=== PATIENT | female | born 1965 | race Native Hawaiian/Other Pacific Islander ===

== ENCOUNTER 2018-11-02 14:07 | Emergency (ER) | payer OTHER, SELFPAY ==
[2018-11-02 14:20] VITALS: BP 144/78; PULSE 65; RESP 12; TEMP 36.9; O2SAT 95; BMI 32.3
[2018-11-02 14:29] LABS: Add Manual Diff / Slide Review NO; Basophils Absolute Auto 100 /uL (0-100); Basophils Percent Auto 0.8 % (0-2); Eosinophils Absolute Auto 200 /uL (0-450); Hematocrit 38.6 % (36-46); Hemoglobin 13.2 g/dL (12.0-16.0); Lymphocytes Absolute Auto 2400 /uL (1100-4500); Lymphocytes Percent Auto 27.6 % (25-40); Mean Corpuscular HGB Conc 34.3 % (30-36); Mean Corpuscular Hemoglobin 31.8 PG (26-34); Mean Corpuscular Volume 92.8 fL (80-100); Monocytes Absolute Auto 700 /uL (0-900); Monocytes Percent Auto 7.6 % (3-14); Neutrophils Absolute Auto 5300 /uL (1500-7000); Platelet Count 331 X10^3/uL (150-400); Red Blood Cell Count 4.16 X10^6/uL (4.0-5.2); Red Cell Distribution Width 12.5 % (11.6-14.8); White Blood Cell Count 8.6 X10^3/uL (4.5-11.0)
--- NOTE | 2018-11-02 14:32 | ED.DIZZY ---
HPI - Dizziness General Chief Complaint: Syncope Stated Complaint: Near syncope Time Seen by Provider: 11/02/18 14:10 Source: patient and EMS Mode of arrival: EMS Limitations: no limitations History of Present Illness HPI Narrative: Patient is a 53-year-old female who presents with acute onset of dizziness. [place] and immediately felt dizzy. She was eating and when she stood up she immediately felt dizzy she sat back down she has not passed out but she is unable to open her eyes due to the dizziness. She feels generally weak all over and nauseous. She denies any chest pain or shortness of breath. MD complaint: dizziness and lightheadedness Description: sense of movement History of similar episodes: No Related Data Home Medications Medication Instructions Recorded Confirmed atorvastatin 40 mg PO DAILY 11/02/18 11/02/18 chlorthalidone 25 mg PO DAILY 11/02/18 11/02/18 losartan 100 mg PO DAILY 11/02/18 11/02/18 omeprazole 20 mg PO DAILY 11/02/18 11/02/18 oxybutynin chloride 15 mg PO BID 11/02/18 paroxetine HCl 20 mg PO DAILY 11/02/18 11/02/18 Previous Rx's Medication Instructions Recorded meclizine 25 mg PO TID PRN #10 tab 11/02/18 ondansetron 4 mg PO Q8H PRN #10 tab 11/02/18 Review of Systems Review of Systems ROS Unobtainable: All systems reviewed & are unremarkable except as noted in HPI and below Constitutional Constitutional: Denies chills, Denies fever(s), Denies lethargy and Denies weakness Eyes Eyes: Denies change in vision, Denies eye discharge, Denies irritation and Denies loss of vision Cardiovascular Cardiovascular: Reports as per HPI, Reports lightheadedness, Denies dyspnea and Denies dyspnea on exertion Respiratory Respiratory: Denies cough, Denies dyspnea, Denies dyspnea on exertion and Denies wheezing Gastrointestinal Gastrointestinal: Denies abdominal pain, Denies change in bowel habits, Denies diarrhea, Denies nausea and Denies vomiting Genitourinary Genitourinary: Denies hematuria, Denies flank pain, Denies urinary incontinence and Denies urinary urgency Musculoskeletal Musculoskeletal: Denies back pain, Denies muscle weakness, Denies numbness and Denies tingling Integumentary/Breasts Skin/Breast: Denies pruritus, Denies erythema, Denies rash and Denies wounds Neurologic Neurologic: Denies loss of vision, Denies numbness, Denies tingling and Denies weakness Allergic/Immunologic Allergic/Immunologic: Denies wheezing [facility] Medical History Hyperlipidemia (Acute) Hypertension (Acute) Exam Initial Vital Signs Initial Vital Signs: Vital Signs Temperature 98.5 F 11/02/18 14:20 Pulse Rate 65 11/02/18 14:20 Respiratory Rate 12 11/02/18 14:20 Blood Pressure 144/78 H 11/02/18 14:20 Pulse Oximetry 95 11/02/18 14:20 GENERAL: Week female keeps her eyes closed symptoms get worse when she opens HEENT: Head atraumatic,EOMI, pupils reactive, face symmetric, CARDIOVASCULAR: Regular rate and rhythm without murmurs, rubs or gallops. RESPIRATORY: Breath sounds equal bilaterally, no wheezes rales or rhonchi. ABDOMEN: Soft, nontender. Normoactive bowel sounds all 4 quadrants. No guarding or rebound. EXTREMITIES: Normal range of motion, no clubbing or edema. Neurovascularly intact NEUROLOGICAL: Alert and oriented x1. Confused about year month and how old she is. Normal gait and speech. Cranial nerves II through XII grossly intact. [employer] strength equal bilaterally good [id number] and [id number] lower extremity strength equal bilaterally. SKIN: Warm, dry, no laceration, no petechiae, no rashes or lesions. Course Orders Ordered: ED Orders 11/02/18 14:12 Complete Blood Count AUTO DIFF Stat Comprehensive Metabolic Panel Stat Prothrombin Time INR Stat Troponin I Stat 11/02/18 14:46 CT head/brain wo con Stat Discontinued Medications Sodium Chloride (Normal Saline 0.9%) 1,000 mls @ 1,000 mls/hr IV CONT MATEO Last Infusion: 11/02/18 16:49 Dose: 0 mls/hr Documented by: Admin: 11/02/18 14:38 Dose: 1,000 mls/hr Documented by: RAHAT Meclizine HCl (Antivert) 25 mg PO NOW ONE Stop: 11/02/18 14:24 Last Admin: 11/02/18 14:38 Dose: 25 mg Documented by: RAHAT Ondansetron HCl (Zofran) 4 mg IV NOW ONE Stop: 11/02/18 14:24 Last Admin: 11/02/18 14:38 Dose: 4 mg Documented by: RAHAT Vital Signs Vital signs: Vital Signs - 8 hr 11/02/18 14:20 11/02/18 15:00 11/02/18 15:30 Temperature 98.5 F Pulse Rate 65 82 80 Respiratory Rate 12 15 22 Blood Pressure 144/78 H Blood Pressure [Right Arm] 119/47 L 98/53 L Pulse Oximetry 95 97 100 11/02/18 16:02 11/02/18 16:51 Temperature Pulse Rate 78 84 Respiratory Rate 20 15 Blood Pressure Blood Pressure [Right Arm] 102/54 L 115/50 L Pulse Oximetry 97 97 MDM - Dizziness Lab Data Attestation: I reviewed the patient's lab results. Result diagrams: 11/02/18 14:12 11/02/18 14:12 Labs: Lab Results 11/02/18 11/02/18 11/02/18 Range/Units 14:12 14:12 14:12 WBC 8.6 (4.5-11.0) X10^3/uL RBC 4.16 (4.0-5.2) X10^6/uL Hgb 13.2 (12.0-16.0) g/dL Hct 38.6 (36-46) % MCV 92.8 (80-100) fL MCH 31.8 (26-34) PG MCHC 34.3 (30-36) % RDW 12.5 (11.6-14.8) % Plt Count 331 (150-400) X10^3/uL Neut % (Auto) 62.0 (50-75) % Lymph % (Auto) 27.6 (25-40) % Glenn % (Auto) 7.6 (3-14) % Eos % (Auto) 2.0 (2-4) % Baso % (Auto) 0.8 (0-2) % Neut # (Auto) 5300 (3681-4068) /uL Lymph # (Auto) 2400 (5901-2564) /uL Glenn # (Auto) 700 (0-900) /uL Eos # (Auto) 200 (0-450) /uL Baso # (Auto) 100 (0-100) /uL PT 11.5 (10.1-12.7) SECONDS INR 1.0 (0.9-1.3) Sodium 138 (137-145) mmol/L Potassium 3.7 (3.4-5.1) mmol/L Chloride 99 (98-107) mmol/L Carbon Dioxide 27 (22-32) mmol/L BUN 15 (7-17) mg/dL Creatinine 0.60 (0.52-1.04) mg/dL Estimated GFR > 60.0 (>60) mL/min BUN/Creatinine Ratio 25.0 H (6-22) Glucose 163 H (70-100) mg/dL Calcium 9.2 (8.4-10.2) mg/dL Total Bilirubin 0.4 (0.2-1.3) mg/dL AST 51 H (14-36) IU/L ALT 53 H (9-52) IU/L Alkaline Phosphatase 61 (38-126) U/L Troponin I < 0.012 (0.01-0.034) ng/mL Total Protein 7.9 (6.3-8.2) g/dL Albumin 4.4 (3.5-5.0) g/dL Globulin 3.5 (1.7-4.1) g/dL Albumin/Globulin Ratio 1.3 (1.0-2.8) Point of Care Testing Glucose POC 191 Urine Dip Bedside Urine Glucose 100 mg/dl Bedside Urine Bilirubin - Negative Bedside Urine Ketone - Negative Urine Specific [place] 1.020 Bedside Urine Occult Blood - Negative Bedside Urine pH 6.0 Bedside Urine Protein +/- 15 Bedside Urine Urobilinogen - Negative Bedside Urine Nitrite - Negative Bedside Urine Leukocytes - Negative Esterase Imaging Data CT scan - head: Radiologist's impression: PROCEDURE: CT HEAD/BRAIN WO CON INDICATIONS: dizzy TECHNIQUE: Noncontrast 4.5 mm thick angled axial sections acquired from the foramen magnum to the vertex, with coronal and sagittal reformats. For radiation dose reduction, the following was used: automated exposure control, adjustment of mA and/or kV according to patient size. COMPARISON: None. FINDINGS: Image quality: Excellent. CSF spaces: Basal cisterns are patent. No extra-axial fluid collections. Ventricles are normal in size and shape. Brain: No midline shift. No intracranial masses or hemorrhage. Jones-white matter interface is normal. Skull and face: Calvarium and visualized facial bones are intact, without suspicious lesions. Sinuses: Visualized sinuses and mastoids are clear. IMPRESSION: CT head without acute intracranial abnormalities. No mass or mass effect identified. Dictated by: Castro Mirza M.D. on 11/02/2018 at 15:03 Approved by: Castro Mirza M.D. on 11/02/2018 at 15:04 ECG Data Attestation: I personally reviewed and interpreted this ECG as follows: Prior ECG tracings: not available for review Interpretation: Normal sinus rhythm rate 70 p.r. interval 167 QRS [address] changes no T-wave inversions Q-wave noted in lead 3 no priors to compare MDM Narrative Medical decision making narrative: Patient able to open her eyes after medications head CT is negative. Blood work also reassuring. She seems a little bit better attempted ambulation trial however she immediately got dizzy. She is able tolerate oral fluids. She did not want any more medication initially. She then was able to ambulate to the restroom with minimal help. Overall feeling much better and ready to go home. Her and son are here with her. Discharge Plan Departure Patient Disposition: Home Clinical Impression: Benign paroxysmal positional vertigo Qualifiers: Laterality: unspecified laterality Qualified Code(s): H81.10 - Benign paroxysmal vertigo, unspecified ear Discharge Date/Time: 11/02/18 17:40 Instructions: Benign Paroxysmal Positional Vertigo Activity Restrictions/Additional Instructions: *You have been diagnosed with vertigo *What to do: This should start to get better free over the next days. If it is persistent despite medication he may need a referral to ENT. *Continue to take medications as directed--> SENT TO [facility] [place] Meclizine 25 mg every 8 hours if needed for dizziness Zofran 4 mg every 8 hours if needed for nausea or vomiting *Follow up with your primary care provider in 2-3 days *Return to ER if you should have weakness, and facial drooping, numbness, tingling, confusion, persistent dizziness or any new, worsening or concerning symptoms Prescriptions: New meclizine 25 mg tablet 25 mg PO TID PRN (Reason: dizziness) Qty: 10 RF: 0 ondansetron 4 mg tablet,disintegrating 4 mg PO Q8H PRN (Reason: nausea and vomiting) Qty: 10 RF: 0 No Action atorvastatin 40 mg tablet 40 mg PO DAILY RF: 0 oxybutynin chloride 15 mg tablet extended release 24hr 15 mg PO BID RF: 0 chlorthalidone 25 mg tablet 25 mg PO DAILY RF: 0 paroxetine HCl 20 mg tablet 20 mg PO DAILY RF: 0 omeprazole 20 mg capsule,delayed release(DR/EC) 20 mg PO DAILY RF: 0 losartan 100 mg tablet 100 mg PO DAILY RF: 0 Referrals: Ayla Chavez [Primary Care Provider] -
[2018-11-02 14:37] LABS: Prothrombin Time 11.5 SECONDS (10.1-12.7)
[2018-11-02] MEDS: ONDANSETRON 4 MG/2 ML INJ IV (14:38)
[2018-11-02] MEDS: MECLIZINE HCL 12.5 MG TABLET 25 MG PO (14:38)
[2018-11-02] MEDS: SODIUM CHLORIDE 0.9% 1,000 ML 1000 ML IV (14:38)
[2018-11-02 14:45] LABS: Alanine Aminotransferase 53 IU/L (9-52); Albumin 4.4 g/dL (3.5-5.0); Albumin Globulin Ratio 1.3 (1.0-2.8); Alkaline Phosphatase 61 U/L (38-126); Aspartate Aminotransferase 51 IU/L (14-36); Bilirubin Total 0.4 mg/dL (0.2-1.3); Blood Urea Nitrogen 15 mg/dL (7-17); Calcium 9.2 mg/dL (8.4-10.2); Carbon Dioxide 27 mmol/L (22-32); Chloride 99 mmol/L (98-107); Estimated Glomerular Filt Rate > 60.0 mL/min (>60); Globulin 3.5 g/dL (1.7-4.1); Glucose 163 mg/dL (70-100); HEMOLYSIS 23 (0-50); Potassium 3.7 mmol/L (3.4-5.1); Sodium 138 mmol/L (137-145); Total Protein 7.9 g/dL (6.3-8.2)
--- NOTE | 2018-11-02 14:46 | DI.CT.S_ITS ---
PROCEDURE: CT HEAD/BRAIN WO CON INDICATIONS: dizzy TECHNIQUE: Noncontrast 4.5 mm thick angled axial sections acquired from the foramen magnum to the vertex, with coronal and sagittal reformats. For radiation dose reduction, the following was used: automated exposure control, adjustment of mA and/or kV according to patient size. COMPARISON: None. FINDINGS: Image quality: Excellent. CSF spaces: Basal cisterns are patent. No extra-axial fluid collections. Ventricles are normal in size and shape. Brain: No midline shift. No intracranial masses or hemorrhage. Jones-white matter interface is normal. Skull and face: Calvarium and visualized facial bones are intact, without suspicious lesions. Sinuses: Visualized sinuses and mastoids are clear. IMPRESSION: CT head without acute intracranial abnormalities. No mass or mass effect identified. Dictated by: Castro Mirza M.D. on 11/02/2018 at 15:03 Approved by: Castro Mirza M.D. on 11/02/2018 at 15:04
[2018-11-02 14:57] LABS: Troponin I < 0.012 ng/mL (0.01-0.034)
[2018-11-02 15:00] VITALS: BP 119/47; PULSE 82; RESP 15; O2SAT 97
[2018-11-02 15:30] VITALS: BP 98/53; PULSE 80; RESP 22; O2SAT 100
[2018-11-02 16:02] VITALS: BP 102/54; PULSE 78; RESP 20; O2SAT 97
[2018-11-02 16:51] VITALS: BP 115/50; PULSE 84; RESP 15; O2SAT 97
== END 2018-11-02 17:40 | disposition home or self-care (01) ==
PROVIDERS: Emergency Provider Emergency Medicine; Family Provider Nurse Practitioner Family; PCP Nurse Practitioner Family
DX: H81.10 Benign paroxysmal vertigo, unspecified ear (principal)
CPT/HCPCS: 36415; 70450; 80053; 81003; 82962; 84484; 85025; 85610; 93005; 93010; 96361; 96374; 99283; 99285; J2405

== ENCOUNTER → 2020-03-21 09:27 | Outpatient (CLI) | payer OTHER, SELFPAY ==
[2020-03-21 10:29] LABS: COVID19 -Nasal RAPID Negative (Negative)
== END ==
PROVIDERS: Family Provider Nurse Practitioner Family; Referring Provider Internal Medicine; Visit Provider Internal Medicine
DX: Z20.822 Contact with and (suspected) exposure to COVID-19 (principal)
CPT/HCPCS: 87635; C9803

== ENCOUNTER → 2020-03-22 08:46 | Outpatient (CLI) | payer OTHER, SELFPAY ==
--- NOTE | 2020-03-31 11:04 | PM.PFT.1 ---
Pulmonary Function Test Referral & Results Date Patient Seen: 03/22/20 Requesting provider: Ant Argueta Results: The spirometry demonstrates an FVC of 1.89 L which is 63% of predicted. The FEV1 was measured at 1.59 L which is 67% of predicted. The FEV1/FVC ratio was 84 which is 105% of predicted. Following the administration of bronchodilator there was no appreciable change. Lung volumes show an SVC of 1.92 L which is 60% of predicted. The diffusing capacity was measured at 18.39 which is 97% of predicted. The maximum voluntary ventilation was reduced Interpretation: This study demonstrates a moderate restrictive lung disease based on reduction SVC as well as matched reduction in FEV1. Diffusing capacity is a bit high considering the degree of restriction which may suggest chest wall issues relating to the findings of restrictive lung disease Clinical correlation suggested
== END ==
LOC: RESP 08:46
PROVIDERS: Family Provider Nurse Practitioner Family; Referring Provider Internal Medicine; Visit Provider Internal Medicine
DX: R93.89 Abnormal findings on diagnostic imaging of other specified body structures (principal); J84.9 Interstitial pulmonary disease, unspecified
CPT/HCPCS: 94060; 94726; 94729